=== PATIENT | female | born 2000 | race African-American/Black ===

== ENCOUNTER 2022-02-25 07:43 | Emergency (ER) | payer SELFPAY ==
[~2022-02-25] VITALS: Ht 160 cm; Wt 75.0 kg
[2022-02-25 07:54] VITALS: BP 119/65
[2022-02-25] MEDS ORDERED: DOXYCYCLINE HYCLATE 100MG CAPSULE PO ONE (08:30)
[2022-02-25] MEDS ORDERED: CEFTRIAXONE SODIUM 1 G/VIAL IM ONE (08:30)
[2022-02-25 10:07] LABS: CLARITY URINE CLEAR (CLEAR); COLOR URINE YELLOW (YELLOW); KETONES URINE NEGATIVE (NEGATIVE); LEUKOCYTE ESTERASE URINE NEGATIVE (NEGATIVE); NITRITE URINE NEGATIVE (NEGATIVE); OCCULT BLOOD URINE NEGATIVE (NEGATIVE); PH URINE 7.5 (4.5-8.0); PROTEIN URINE NEGATIVE (NEGATIVE); SPECIFIC GRAVITY URINE 1.018 (1.005-1.030)
[2022-02-25] MEDS ORDERED: DOXY100T2 PO (10:27)
[2022-02-25] MEDS ORDERED: CEFTRIAXONE SODIUM 1 G/VIAL IM NR (10:45)
[2022-02-25] MEDS ORDERED: DOXYCYCLINE HYCLATE 100MG CAPSULE PO NR (10:45)
[2022-02-28 04:09] LABS: NEISSERIA GONORRHOEAE NAA Negative (Negative)
== END 2022-02-25 11:10 | disposition home or self-care (01) ==
LOC: ER 07:58
DX: Z20.2 Contact with and (suspected) exposure to infections with a predominantly sexual mode of transmission (principal)
CPT/HCPCS: 81003; 81025; 87491; 87591; 96372; 99283; J0696

== ENCOUNTER 2022-04-10 10:13 | Emergency (ER) | payer SELFPAY ==
[~2022-04-10] VITALS: Ht 175.3 cm; Wt 89.0 kg
[~2022-04-10 10:13] MED LIST: DOXY100T2 PO
[2022-04-10 10:16] VITALS: BP 134/52
[2022-04-10] MEDS ORDERED: LIDOCAINE HCL 1% 20ML VIAL (Pyxis) INJ INFIL ONE (11:15)
[2022-04-10] MEDS ORDERED: CEFTRIAXONE SODIUM 500 MG/VIAL IM ONE (11:15)
[2022-04-10] MEDS ORDERED: ONDA4TAB11 PO (11:19)
[2022-04-10] MEDS ORDERED: DOXY100T2 MT (11:19)
== END 2022-04-10 11:53 | disposition home or self-care (01) ==
LOC: ER 10:13
DX: A74.9 Chlamydial infection, unspecified (principal)
CPT/HCPCS: 81025; 96372; 99283; J0696; J3490